=== PATIENT | female | born 1965 | race Caucasian/White ===

== ENCOUNTER 2018-02-11 07:30 | Day surgery (SDC) | payer BC ==
[~2018-02-11] VITALS: Ht 165.1 cm; Wt 105.2 kg
[~2018-02-11 07:30] MED LIST: IRON325 M1 PO; SYNTHROID50 MCG PO; TENORMIN25 MG PO; VITAMIN D2000 UNIT PO; XANAX0.25 MG PO; XOPENEX HF200 INHALA IH; ZANTAC75 M1 PO
[2018-02-11 07:57] VITALS: BP 131/61
[2018-02-11] MEDS ORDERED: PERCOCET 5/31 TABLET PO (11:23)
[2018-02-11 12:12] VITALS: BP 129/62
[2018-02-11 13:19] VITALS: BP 133/60
== END 2018-02-11 13:45 | disposition home or self-care (01) ==
LOC: SDC 07:30
DX: N83.11 Corpus luteum cyst of right ovary (principal); N92.0 Excessive and frequent menstruation with regular cycle; N94.6 Dysmenorrhea, unspecified; N84.0 Polyp of corpus uteri; I10 Essential (primary) hypertension; R00.1 Bradycardia, unspecified; E03.9 Hypothyroidism, unspecified; Z88.0 Allergy status to penicillin; Z88.2 Allergy status to sulfonamides
CPT/HCPCS: 86850; 86900; 86901; 88305; 93005; J0131; J0330; J0690; J1100; J1170; J1885; J2250; J2405; J2710; J2765; J3010; J7643; S0020